=== PATIENT | female | born 1960 | race Caucasian/White ===

== ENCOUNTER 2022-01-28 15:33 | Emergency (ER) | payer OTHER ==
[~2022-01-28] VITALS: Ht 162.6 cm; Wt 102.1 kg
[2022-01-28 16:20] VITALS: BP 163/86
[2022-01-28] MEDS ORDERED: IBUP800T27 PO (17:13)
[2022-01-28] MEDS ORDERED: KETOROLAC TROMETH 60MG/2ML VIAL IM ONE (17:15)
== END 2022-01-28 17:20 | disposition home or self-care (01) ==
LOC: ER 15:33
DX: S83.92XA Sprain of unspecified site of left knee, initial encounter (principal); M77.9 Enthesopathy, unspecified; J45.909 Unspecified asthma, uncomplicated; X50.1XXA Overexertion from prolonged static or awkward postures, initial encounter; Y93.89 Activity, other specified; Y92.89 Other specified places as the place of occurrence of the external cause; Y99.8 Other external cause status
CPT/HCPCS: 73562; 96372; 99283; J1885